=== PATIENT | female | born 1985 | race Hispanic/Latino ===

== ENCOUNTER 2017-12-13 18:31 | Emergency (ER) | payer MEDICAID ==
[2017-12-13 18:52] LABS: APPEARANCE,URINE Clear (CLEAR); BILIRUBIN,URINE Negative (NEGATIVE); COLOR,URINE Dark Yellow (YELLOW); GLUCOSE, URINE (UA) Negative (NEGATIVE); KETONES,URINE Trace mg/dL (NEGATIVE); LEUKOCYTE ESTERASE ,URINE Trace (NEGATIVE); NITRATE,URINE Positive (NEGATIVE); OCCULT BLOOD,URINE Moderate (NEGATIVE); PH,URINE 5.5 (5.0-8.0); PROTEIN,URINE Negative (NEGATIVE)
[2017-12-13 18:57] LABS: HCG,QUAL RESULT NEGATIVE (NEGATIVE)
[2017-12-13 19:03] LABS: BASOPHILS % (AUTO) 0.4 % (0.0-5.0); EOSINOPHILS % (AUTO) 1.1 % (0.0-8.0); HEMATOCRIT 40.8 % (36-48); LYMPHOCYTES % (AUTO) 18.7 % (21.0-51.0); MEAN CORPUSCULAR HEMOGLOBIN 31.6 pg (27.0-33.0); MEAN CORPUSCULAR VOLUME 92.7 fL (79-99); MONOCYTES % (AUTO) 6.4 % (3.0-13.0); NEUTROPHILS % (AUTO) 73.4 % (40.0-77.0); PLATELET COUNT (AUTO) 246 K/uL (130-400); RED BLOOD CELL COUNT(AUTO) 4.41 MIL/uL (4.00-5.50); RED CELL DISTRIBUTION WIDTH 12.6 % (11.0-15.5); WHITE BLOOD COUNT (AUTO) 9.2 K/uL (4.8-10.8)
[2017-12-13] MEDS ORDERED: SODIUM CHLORIDE 0.9% 1000ML 1,000 ML IV ONE (19:09)
[2017-12-13 19:18] LABS: BACTERIA,URINE Rare /HPF (None Seen); CALCIUM OXALATE CRYSTALS,UR Few /LPF (None Seen); WBC,URINE 0-1 /HPF (0-1)
[2017-12-13 19:24] LABS: CREATININE 0.7 mg/dL (0.5-1.5)
[2017-12-13 19:28] LABS: ALBUMIN 3.7 g/dL (3.5-5.0); BILIRUBIN,TOTAL 0.8 mg/dL (0.2-1.0); TOTAL PROTEIN, SERUM 8.1 g/dL (6.0-8.3)
[2017-12-13] MEDS ORDERED: KETOROLAC TROMETHAMINE 15MG/ML ONE (19:46)
[2017-12-13] MEDS ORDERED: ONDANSETRON ODT 4 MG TAB ONE (19:47)
[2017-12-13 20:25] LABS: AMPHET/METH SCREEN,URINE NEGATIVE (NEGATIVE); BARBITURATE SCREEN, URINE NEGATIVE (NEGATIVE); BENZODIAZEPINES SCREEN,URINE NEGATIVE (NEGATIVE); CANNABINOID SCREEN,URINE NEGATIVE (NEGATIVE); COCAINE SCREEN,URINE POSITIVE (NEGATIVE); OPIATE SCREEN,URINE POSITIVE (NEGATIVE); PHENCYCLIDINE SCREEN,URINE NEGATIVE (NEGATIVE)
== END 2017-12-13 21:20 | disposition home or self-care (01) ==
LOC: EDH 18:31
DX: N23 Unspecified renal colic (principal); N13.30 Unspecified hydronephrosis; F14.10 Cocaine abuse, uncomplicated; E78.5 Hyperlipidemia, unspecified; Z88.0 Allergy status to penicillin; Z98.51 Tubal ligation status
CPT/HCPCS: 36415; 76770; 80053; 80305; 81001; 81025; 83690; 85025; 96361 ×2; 96374; 99285; J1885; J7030

== ENCOUNTER 2018-07-22 12:04 | Observation (INO) | payer MEDICAID ==
[~2018-07-22] VITALS: Ht 160 cm; Wt 74.4 kg
[2018-07-22 12:48] LABS: BASOPHILS % (AUTO) 0.4 % (0.0-5.0); EOSINOPHILS % (AUTO) 0.4 % (0.0-8.0); HEMATOCRIT 36.7 % (36-48); LYMPHOCYTES % (AUTO) 14.2 % (21.0-51.0); MEAN CORPUSCULAR HGB CONC 33.5 g/dL (32.0-36.0); MEAN CORPUSCULAR VOLUME 92.5 fL (79-99); MONOCYTES % (AUTO) 6.5 % (3.0-13.0); NEUTROPHILS % (AUTO) 78.5 % (40.0-77.0); PLATELET COUNT (AUTO) 196 K/uL (130-400); RED BLOOD CELL COUNT(AUTO) 3.97 MIL/uL (4.00-5.50); RED CELL DISTRIBUTION WIDTH 12.6 % (11.0-15.5)
[2018-07-22 12:53] LABS: APPEARANCE,URINE Clear (CLEAR); BILIRUBIN,URINE Negative (NEGATIVE); COLOR,URINE Yellow (YELLOW); GLUCOSE, URINE (UA) Negative (NEGATIVE); HCG,QUAL RESULT NEGATIVE (NEGATIVE); KETONES,URINE Negative (NEGATIVE); LEUKOCYTE ESTERASE ,URINE Trace (NEGATIVE); NITRATE,URINE Negative (NEGATIVE); OCCULT BLOOD,URINE Moderate (NEGATIVE); PH,URINE 6.5 (5.0-8.0); PROTEIN,URINE Negative (NEGATIVE); UROBILINOGEN,URINE 0.2 mg/dL (0.2-1.0)
[2018-07-22 13:00] LABS: CARBON DIOXIDE 25 mmol/L (21-32); CHLORIDE 107 mmol/L (101-111); CREATININE 0.6 mg/dL (0.5-1.5); GLOMERULAR FILTR. RATE CALC 122 mL/min (>60); GLUCOSE,RANDOM 95 mg/dL (70-105); POTASSIUM 4.1 mmol/L (3.5-5.1); SODIUM SERUM 139 mmol/L (136-145); UREA NITROGEN, BLOOD 11 mg/dL (7-18)
[2018-07-22 13:01] LABS: BACTERIA,URINE Rare /HPF (None Seen); SQUAMOUS EPITHELIAL CELL,UR Rare /HPF (0-2); WBC,URINE 0-1 /HPF (0-1)
[2018-07-22 13:03] LABS: AMPHET/METH SCREEN,URINE NEGATIVE (NEGATIVE); BARBITURATE SCREEN, URINE NEGATIVE (NEGATIVE); BENZODIAZEPINES SCREEN,URINE NEGATIVE (NEGATIVE); CANNABINOID SCREEN,URINE NEGATIVE (NEGATIVE); COCAINE SCREEN,URINE NEGATIVE (NEGATIVE); OPIATE SCREEN,URINE POSITIVE (NEGATIVE); PHENCYCLIDINE SCREEN,URINE NEGATIVE (NEGATIVE)
[2018-07-22 13:11] LABS: ALANINE AMINOTRANSFERASE 53 U/L (12-78); ALBUMIN 3.4 g/dL (3.5-5.0); ASPARTATE AMINOTRANSFERASE 24 U/L (10-37); BILIRUBIN,TOTAL 0.6 mg/dL (0.2-1.0); TOTAL PROTEIN, SERUM 7.1 g/dL (6.0-8.3)
[2018-07-22 13:12] LABS: ACETAMINOPHEN 4 mcg/mL (10-30); ALCOHOL, BLOOD < 3 mg/dL (0-10); SALICYLATE < 2.8 mg/dL (2.8-20.0)
[2018-07-22] MEDS ORDERED: LACTULOSE 20 GM/30 ML UDCUP PO PRN (14:00)
[2018-07-22] MEDS ORDERED: ZOLPIDEM TARTRATE 5 MG TAB PO PRN (14:00)
[2018-07-22] MEDS ORDERED: ACETAMINOPHEN 325 MG TAB PO PRN (14:00)
[2018-07-22] MEDS ORDERED: MAG HYDROX/AL HYDROX/SIMETH ES 30 ML SUSP UDCUP PO PRN (14:00)
[2018-07-22] MEDS ORDERED: ONDANSETRON HCL 4 MG/2 ML VIAL IV PRN (14:00)
[2018-07-22] MEDS ORDERED: CHARCOAL/SORBITOL 50 GM/240 ML SUSP PO SCH (19:15)
[2018-07-22] MEDS: ACETYLCYSTEINE 10% 100MG/ML 4ML VIAL PO SCH ×2 (19:15→23:15)
[2018-07-22] MEDS: SODIUM CHLORIDE 0.9% 1000ML 1,000 ML IV SCH (21:27)
[2018-07-22 21:45] VITALS: BP 120/92
[2018-07-23 00:04] VITALS: BP 103/74
[2018-07-23] MEDS: ACETYLCYSTEINE 10% 100MG/ML 4ML VIAL PO SCH ×2 (03:15→07:15)
[2018-07-23 04:15] VITALS: BP 101/63
[2018-07-23] MEDS: SODIUM CHLORIDE 0.9% 1000ML 1,000 ML IV SCH (05:33)
[2018-07-23 08:00] VITALS: BP 108/64
[2018-07-23] MEDS ORDERED: PANTOPRAZOLE SODIUM 40 MG TABLET.DR PO SCH (09:00)
[2018-07-23] MEDS ORDERED: ENOXAPARIN SODIUM 40 MG/0.4 ML SYRINGE SQ SCH (09:00)
[2018-07-23 12:00] VITALS: BP 114/69
== END 2018-07-23 17:20 | disposition home or self-care (01) ==
LOC: EDH 12:04 → EEVIPCON 12:04 → EDHIP 12:05 → 3AH 21:05
PROVIDERS: ADMIT Internal Medicine; ATTEND Internal Medicine
DX: T39.1X2A Poisoning by 4-Aminophenol derivatives, intentional self-harm, initial encounter (principal); E83.52 Hypercalcemia; R27.9 Unspecified lack of coordination; Y92.89 Other specified places as the place of occurrence of the external cause
CPT/HCPCS: 36415 ×2; 80053; 80305; 81001; 81025; 84443; 85025; 96360; 96361 ×2; 96372; 99285; G0378 ×29; G0480 ×4; G0481; J1650; J7030 ×2; J7608; Q2038

== ENCOUNTER 2018-08-01 21:19 | Emergency (ER) | payer MEDICAID ==
[2018-08-01 21:47] LABS: APPEARANCE,URINE Clear (CLEAR); BILIRUBIN,URINE Small (NEGATIVE); COLOR,URINE Dark Yellow (YELLOW); GLUCOSE, URINE (UA) Negative (NEGATIVE); KETONES,URINE Negative (NEGATIVE); LEUKOCYTE ESTERASE ,URINE Small (NEGATIVE); NITRATE,URINE Positive (NEGATIVE); OCCULT BLOOD,URINE Large (NEGATIVE); PROTEIN,URINE Trace (NEGATIVE)
[2018-08-01 21:48] LABS: HCG,QUAL RESULT NEGATIVE (NEGATIVE)
[2018-08-01 21:58] LABS: RBC,URINE >100 /HPF (0-1)
[2018-08-01 21:59] LABS: BACTERIA,URINE Rare /HPF (None Seen); CALCIUM OXALATE CRYSTALS,UR Few /LPF (None Seen); SQUAMOUS EPITHELIAL CELL,UR Rare /HPF (0-2)
[2018-08-01] MEDS ORDERED: NITROFURANTOIN MONOHYD/M-CRYST 100 MG CAPSULE PO ONE (22:28)
[2018-08-01] MEDS ORDERED: PHENAZOPYRIDINE HCL 200 MG TABLET ONE (22:28)
== END 2018-08-01 22:59 | disposition home or self-care (01) ==
LOC: EDH 21:19
DX: N30.00 Acute cystitis without hematuria (principal); E78.5 Hyperlipidemia, unspecified; Z88.0 Allergy status to penicillin; Z87.442 Personal history of urinary calculi; Z79.899 Other long term (current) drug therapy; Z98.51 Tubal ligation status
CPT/HCPCS: 81001; 81025

== ENCOUNTER 2019-01-25 12:07 | Emergency (ER) | payer MEDICAID, OTHER ==
[2019-01-25] MEDS ORDERED: LIDOCAINE HCL 2% VISCOUS 15 ML UDCUP ONE (12:16)
== END 2019-01-25 12:24 | disposition home or self-care (01) ==
LOC: EDH 12:07
DX: S02.5XXA Fracture of tooth (traumatic), initial encounter for closed fracture (principal); E78.5 Hyperlipidemia, unspecified; F32.9 Major depressive disorder, single episode, unspecified; Z98.51 Tubal ligation status; Z88.0 Allergy status to penicillin; X58.XXXA Exposure to other specified factors, initial encounter; Y93.89 Activity, other specified; Y92.89 Other specified places as the place of occurrence of the external cause; Y99.8 Other external cause status

== ENCOUNTER 2019-05-31 13:36 | Emergency (ER) | payer OTHER ==
[2019-05-31 14:12] LABS: BASOPHILS % (AUTO) 0.2 % (0.0-5.0); EOSINOPHILS % (AUTO) 0.5 % (0.0-8.0); HEMATOCRIT 41.9 % (36-48); LYMPHOCYTES % (AUTO) 16.8 % (21.0-51.0); MEAN CORPUSCULAR HEMOGLOBIN 32.3 pg (27.0-33.0); MEAN CORPUSCULAR HGB CONC 34.5 g/dL (32.0-36.0); MEAN CORPUSCULAR VOLUME 93.7 fL (79-99); MONOCYTES % (AUTO) 5.8 % (3.0-13.0); NEUTROPHILS % (AUTO) 76.7 % (40.0-77.0); PLATELET COUNT (AUTO) 243 K/uL (130-400); RED BLOOD CELL COUNT(AUTO) 4.47 MIL/uL (4.00-5.50); RED CELL DISTRIBUTION WIDTH 12.5 % (11.0-15.5); WHITE BLOOD COUNT (AUTO) 7.1 K/uL (4.8-10.8)
[2019-05-31 14:19] LABS: CARBON DIOXIDE 26 mmol/L (21-32); CHLORIDE 107 mmol/L (101-111); CREATININE 0.7 mg/dL (0.5-1.5); GLOMERULAR FILTR. RATE CALC 101 mL/min (>60); GLUCOSE,RANDOM 107 mg/dL (70-105); POTASSIUM 3.9 mmol/L (3.5-5.1); SODIUM SERUM 140 mmol/L (136-145); UREA NITROGEN, BLOOD 11 mg/dL (7-18)
[2019-05-31 14:24] LABS: ALANINE AMINOTRANSFERASE 64 U/L (12-78); ALBUMIN 3.3 g/dL (3.5-5.0); ALCOHOL, BLOOD < 3 mg/dL (0-10); ASPARTATE AMINOTRANSFERASE 29 U/L (10-37); TOTAL PROTEIN, SERUM 6.7 g/dL (6.0-8.3)
[2019-05-31 14:32] LABS: APPEARANCE,URINE Clear (CLEAR); BILIRUBIN,URINE Negative (NEGATIVE); COLOR,URINE Yellow (YELLOW); GLUCOSE, URINE (UA) Negative (NEGATIVE); KETONES,URINE Trace mg/dL (NEGATIVE); LEUKOCYTE ESTERASE ,URINE Negative (NEGATIVE); NITRATE,URINE Negative (NEGATIVE); OCCULT BLOOD,URINE Negative (NEGATIVE); PROTEIN,URINE Negative (NEGATIVE); UROBILINOGEN,URINE 0.2 mg/dL (0.2-1.0)
[2019-05-31 14:36] LABS: AMPHET/METH SCREEN,URINE NEGATIVE (NEGATIVE); BARBITURATE SCREEN, URINE NEGATIVE (NEGATIVE); BENZODIAZEPINES SCREEN,URINE NEGATIVE (NEGATIVE); CANNABINOID SCREEN,URINE NEGATIVE (NEGATIVE); COCAINE SCREEN,URINE NEGATIVE (NEGATIVE); HCG,QUAL RESULT NEGATIVE (NEGATIVE); OPIATE SCREEN,URINE NEGATIVE (NEGATIVE); PHENCYCLIDINE SCREEN,URINE NEGATIVE (NEGATIVE)
[2019-05-31 14:38] LABS: ACETAMINOPHEN < 1 mcg/mL (10-30); SALICYLATE < 2.8 mg/dL (2.8-20.0)
== END 2019-05-31 15:12 ==
LOC: EDH 13:36 → EEVIPCON 13:36 → EDH 15:12
DX: R45.851 Suicidal ideations (principal); F32.9 Major depressive disorder, single episode, unspecified; E78.5 Hyperlipidemia, unspecified; Z87.442 Personal history of urinary calculi; Z88.0 Allergy status to penicillin
CPT/HCPCS: 36415; 80053; 80305; 81003; 81025; 85025; 99284; G0480 ×2; G0481

== ENCOUNTER 2019-05-31 17:29 | Emergency (ER) | payer OTHER ==
[2019-05-31 18:31] LABS: AMPHET/METH SCREEN,URINE NEGATIVE (NEGATIVE); BARBITURATE SCREEN, URINE NEGATIVE (NEGATIVE); BENZODIAZEPINES SCREEN,URINE NEGATIVE (NEGATIVE); CANNABINOID SCREEN,URINE NEGATIVE (NEGATIVE); COCAINE SCREEN,URINE NEGATIVE (NEGATIVE); OPIATE SCREEN,URINE NEGATIVE (NEGATIVE); PHENCYCLIDINE SCREEN,URINE NEGATIVE (NEGATIVE)
== END 2019-05-31 19:53 ==
LOC: EDH 17:29
DX: R45.851 Suicidal ideations (principal); Z76.5 Malingerer [conscious simulation]
CPT/HCPCS: 80305

== ENCOUNTER 2020-03-06 01:08 | Inpatient (IN) | payer OTHER ==
[~2020-03-06] VITALS: Ht 160 cm; Wt 65.2 kg
[2020-03-06 01:55] LABS: APPEARANCE,URINE Cloudy (CLEAR); BILIRUBIN,URINE Negative (NEGATIVE); COLOR,URINE Yellow (YELLOW); GLUCOSE, URINE (UA) Negative (NEGATIVE); KETONES,URINE 40 mg/dL (NEGATIVE); LEUKOCYTE ESTERASE ,URINE Moderate (NEGATIVE); NITRATE,URINE Negative (NEGATIVE); OCCULT BLOOD,URINE Large (NEGATIVE); PH,URINE 5.5 (5.0-8.0); PROTEIN,URINE Trace mg/dL (NEGATIVE)
[2020-03-06 01:59] LABS: HCG,QUAL RESULT NEGATIVE (NEGATIVE)
[2020-03-06 02:06] LABS: BACTERIA,URINE Rare /HPF (None Seen); CALCIUM OXALATE CRYSTALS,UR Few /LPF (None Seen); SQUAMOUS EPITHELIAL CELL,UR Moderate /HPF (0-2)
[2020-03-06] MEDS ORDERED: ACETAMINOPHEN 325 MG TAB ONE (02:10)
[2020-03-06 02:28] LABS: BASOPHILS % (AUTO) 0.2 % (0.0-5.0); EOSINOPHILS % (AUTO) 0.2 % (0.0-8.0); HEMATOCRIT 43.9 % (36-48); LYMPHOCYTES % (AUTO) 12.9 % (21.0-51.0); MEAN CORPUSCULAR HEMOGLOBIN 31.5 pg (27.0-33.0); MEAN CORPUSCULAR HGB CONC 33.3 g/dL (32.0-36.0); MEAN CORPUSCULAR VOLUME 94.8 fL (79-99); MONOCYTES % (AUTO) 5.7 % (3.0-13.0); NEUTROPHILS % (AUTO) 80.8 % (40.0-77.0); PLATELET COUNT (AUTO) 268 K/uL (130-400); RED BLOOD CELL COUNT(AUTO) 4.63 MIL/uL (4.00-5.50); RED CELL DISTRIBUTION WIDTH 12.3 % (11.0-15.5); WHITE BLOOD COUNT (AUTO) 9.3 K/uL (4.8-10.8)
[2020-03-06 02:37] LABS: CREATININE 0.6 mg/dL (0.5-1.5); POTASSIUM 4.2 mmol/L (3.5-5.1)
[2020-03-06] MEDS ORDERED: ONDANSETRON HCL 4 MG/2 ML VIAL IV PRN (04:45)
[2020-03-06] MEDS ORDERED: LEVOFLOXACIN 500 MG/D5W 100 ML 100 ML ONE (05:39)
[2020-03-06 06:10] VITALS: BP 141/83
--- NOTE | 2020-03-06 06:30 | NUR ---
ADMISSION 0610 PATIENT ARRIVED VIA STRETCHER. AMBULATED TO BATHROOM WITHOUT DIFFICULTY. AAOX3 BREATHING REGULAR AND UNLABORED ON ROOM AIR. ASSESSMENT COMPLETED. CHEST X-RAY DONE. PATIENT [employer]. VOICES SCRATCHY THROAT,BODY ACHES, AND INTERMITTENT DRY COUGH. AFEBRILE. STATED INITIAL COVID-19 TEST 02/08/20 (+) LAST COVID -19 TEST 02/16/20 (+). BURNING SENSATION ON URINATION. DISCUSSED PLAN OF CARE WITH PATIENT AND REASON FOR ADMISSION. NS INFUSING TO R PIV AT 50 ML / HR. POSITIONED TO COMFORT. CALL LIGHT IN REACH. PIPE STRIPPER AT BEDSIDE PATIENT VOICES THOUGHTS OF SUICIDAL IDEATION 2 WEEKS AGO. NO ATTEMPTS, NO PLAN. NON-COMPLIANT WITH ANTI-DEPRESSANTS
[2020-03-06] MEDS: LEVOFLOXACIN 500 MG/D5W 100 ML 100 ML IV SCH (06:44)
[2020-03-06] MEDS: SODIUM CHLORIDE 0.9% 1000ML 1,000 ML IV SCH ×3 (06:44→18:13)
[2020-03-06 07:04] LABS: ALANINE AMINOTRANSFERASE 21 U/L (12-78); ALBUMIN 3.8 g/dL (3.5-5.0); ASPARTATE AMINOTRANSFERASE 12 U/L (10-37); CARBON DIOXIDE 24 mmol/L (21-32); CHLORIDE 106 mmol/L (101-111); CREATININE 0.7 mg/dL (0.5-1.5); GLOMERULAR FILTR. RATE CALC 101 mL/min (>60); GLUCOSE,RANDOM 93 mg/dL (70-105); POTASSIUM 4.1 mmol/L (3.5-5.1); SODIUM SERUM 139 mmol/L (136-145); THYROID STIMULATING HORMONE 1.07 uIU/mL (0.36-3.74); TOTAL PROTEIN, SERUM 7.6 g/dL (6.0-8.3); UREA NITROGEN, BLOOD 10 mg/dL (7-18)
--- NOTE | 2020-03-06 07:30 | NUR ---
MD ROUNDS DR SORIANO AT THE BEDSIDE. PATIENT INTERVIEW/ASSESSMENT. PLAN OF CARE DISCUSSED WITH PATIENT. NEW ORDERS RECEIVED AND ENTERED INTO SYSTEM. NS INCREASED TO 150 ML/HR
[2020-03-06 08:19] VITALS: BP 123/80
[2020-03-06] MEDS: ACETAMINOPHEN 325 MG TAB PO PRN ×3 (08:19→21:04)
[2020-03-06] MEDS: FAMOTIDINE 20MG TAB 20 MG TAB PO SCH ×2 (08:19→19:59)
[2020-03-06] MEDS ORDERED: FUROSEMIDE 10 MG/ML 4ML VIAL IV SCH (09:00)
[2020-03-06] MEDS: ALPRAZOLAM 0.25 MG TABLET PO PRN ×2 (10:56→21:04)
[2020-03-06 11:19] VITALS: BP 153/83
[2020-03-06] MEDS ORDERED: COMPOUND IV REFRIGERATED 1 EACH IVSOLN MISC PRN (12:45)
[2020-03-06] MEDS ORDERED: CALCITONIN 200 UNITS/ML 2 ML VIAL SQ SCH (13:00)
[2020-03-06 16:09] VITALS: BP 130/78
[2020-03-06 20:00] VITALS: BP 124/74
--- NOTE | 2020-03-06 20:36 | NUR ---
MD CALL PAGED RAFAT HURT SUPERINTENDENT MARINE TO NOTIFY HER OF PATIENT TEST RESULT FOR COVID-19 WAS NEGATIVE. AWAITING FOR CALL BACK.
--- NOTE | 2020-03-06 21:17 | NUR ---
MD REENA HURT L[employer]ARGE MILL OPERATOR CALLED BACK ORDERS TO TRANSFER PATIENT TO TELE FOURTH FLOOR SECONDARY TO NEGATIVE COVID-19 RESULT.
--- NOTE | 2020-03-06 22:40 | NUR ---
TRANSFER REPORT GIVEN TO KVNG DE LUNA PATIENT BEING TRANSFERRED TO MEDICAL FLOOR POST NEGATIVE COVID-19 RESULT.
[2020-03-06 23:25] VITALS: BP 123/75
--- NOTE | 2020-03-06 23:25 | NUR ---
TRANSFER PATIENT TRANSFERRED FROM 220 INTO ROOM 324, AWAKE, ALERT AND VERBALLY RESPONSIVE. NO C/O PAIN OR DISCOMFORT AT THIS TIME. ASSISTED FROM WHEELCHAIR INTO BED, NOTICED SOME GENERAL BODY WEAKNESS. 24 HOUR URINE COLLECTION ONGOING, PATIENT AWARE. ORIENTED TO ROOM, CALL GREENE WITHIN REACH, BED IN LOWEST POSITION. WILL CONTINUE TO MONITOR. Addendum: 03/07/20 at 0017 by RENETTA COREAS RN Amended: Links added.
[2020-03-07] MEDS ORDERED: CALCITONIN 200 UNITS/ML 2 ML VIAL SQ SCH (00:15)
[2020-03-07] MEDS: SODIUM CHLORIDE 0.9% 1000ML 1,000 ML IV SCH ×5 (00:20→20:07)
[2020-03-07 04:00] VITALS: BP 114/70
[2020-03-07 04:35] LABS: BASOPHILS % (AUTO) 0.2 % (0.0-5.0); EOSINOPHILS % (AUTO) 0.1 % (0.0-8.0); HEMATOCRIT 38.8 % (36-48); LYMPHOCYTES % (AUTO) 12.8 % (21.0-51.0); MEAN CORPUSCULAR HEMOGLOBIN 30.8 pg (27.0-33.0); MEAN CORPUSCULAR VOLUME 93.5 fL (79-99); MONOCYTES % (AUTO) 7.1 % (3.0-13.0); NEUTROPHILS % (AUTO) 79.5 % (40.0-77.0); PLATELET COUNT (AUTO) 263 K/uL (130-400); RED BLOOD CELL COUNT(AUTO) 4.15 MIL/uL (4.00-5.50); RED CELL DISTRIBUTION WIDTH 11.9 % (11.0-15.5); WHITE BLOOD COUNT (AUTO) 9.2 K/uL (4.8-10.8)
[2020-03-07 04:58] LABS: CREATININE 0.6 mg/dL (0.5-1.5); PHOSPHORUS 1.4 mg/dL (2.5-4.9); POTASSIUM 3.3 mmol/L (3.5-5.1)
[2020-03-07] MEDS: LEVOFLOXACIN 500 MG/D5W 100 ML 100 ML IV SCH (05:45)
[2020-03-07] MEDS: ALPRAZOLAM 0.25 MG TABLET PO PRN ×2 (07:10→20:01)
[2020-03-07] MEDS ORDERED: POTASSIUM PHOS 15 mMOL+NS250ML 250 ML IV PRN (07:45)
[2020-03-07 08:17] VITALS: BP 104/75
[2020-03-07] MEDS: FAMOTIDINE 20MG TAB 20 MG TAB PO SCH ×2 (09:59→20:01)
[2020-03-07 11:15] VITALS: BP 101/56
[2020-03-07] MEDS: ACETAMINOPHEN 325 MG TAB PO PRN (13:41)
--- NOTE | 2020-03-07 15:22 | NUR ---
DC PLAN VISITED WITH PATIENT. PATIENT LIVES WITH KIDS . PATIENT INDEPENDENT ABLE TO PERFORM ADL'S. PATIENT HAS NO SERVICES OR DME'S. FEELS SAFE TO RETURN HOME. Addendum: 03/07/20 at 1524 by JORGE HODGE RN CM Amended: Links added.
[2020-03-07 16:51] VITALS: BP 109/66
[2020-03-07 19:30] VITALS: BP 115/75
[2020-03-07 23:06] VITALS: BP 109/65
[2020-03-08] VITALS (7 sets, daily range): BP systolic 97–141; BP diastolic 60–75
[2020-03-08] MEDS: SODIUM CHLORIDE 0.9% 1000ML 1,000 ML IV SCH ×3 (03:16→18:14)
[2020-03-08] MEDS: ACETAMINOPHEN 325 MG TAB PO PRN (03:16)
[2020-03-08 04:32] LABS: CREATININE 0.6 mg/dL (0.5-1.5); MAGNESIUM 2.1 mg/dL (1.80-2.40); PHOSPHORUS 2.2 mg/dL (2.5-4.9); POTASSIUM 3.5 mmol/L (3.5-5.1)
[2020-03-08] MEDS: LEVOFLOXACIN 500 MG/D5W 100 ML 100 ML IV SCH (04:40)
[2020-03-08] MEDS: FUROSEMIDE 10 MG/ML 4ML VIAL IV SCH ×2 (06:39→18:14)
[2020-03-08] MEDS: ALPRAZOLAM 0.25 MG TABLET PO PRN ×2 (08:16→16:06)
--- NOTE | 2020-03-08 08:30 | NUR ---
DR. CLARY MUSE HERE TO SEE PATIENT. TOLD PATIENT HE WOULD SPEAK TO DR. CYR TO RECOMMEND ENT CONSULT.
[2020-03-08] MEDS ORDERED: ERGOCALCIFEROL (VITAMIN D2) 50,000 UNIT CAPSULE PO SCH (09:00)
[2020-03-08] MEDS: FAMOTIDINE 20MG TAB 20 MG TAB PO SCH ×2 (09:19→20:21)
--- NOTE | 2020-03-08 11:00 | NUR ---
NOTE DR VERDUZCO'S OFFICE WAS CALLED FOR ENT CONSULT BUT WE WERE NOTIFIED HE IS OUT OF TOWN UNTIL THURSDAY. WE WILL TRY ANOTHER ENT TO SEE IF THEY CAN SEE HER BEFORE WEEKEND. WILL NOTIFY DR CYR.
[2020-03-08] MEDS ORDERED: CINACALCET HCL 30 MG TAB PO SCH (15:00)
[2020-03-09] MEDS ORDERED: ALPRAZOLAM 0.25 MG TABLET PO ONE (00:45)
[2020-03-09] MEDS: SODIUM CHLORIDE 0.9% 1000ML 1,000 ML IV SCH ×2 (01:02→03:19)
--- NOTE | 2020-03-09 03:12 | NUR ---
0042; I page Mehran ZARAGOZA due to patient requesting another xanax, for her anxiety she is not able to rest. 0045: Irma Malloy PALLET RECTIFIER returned the call informed her of above, informed her patient received Xanax 0.5 mg at 1200 and 1600. Orders received for Xanax 0.25 mg one extra dose. Patient made aware, informed her would bring medication when available. Patient verbalized understanding. 0137: Patient still talking on the phone, very upset yelling at some one. Xanax 0.25 mg administered po 0312: Patient still awake has been eating all night, no complains of pain.
[2020-03-09 04:00] VITALS: BP 112/68
[2020-03-09] MEDS: LEVOFLOXACIN 500 MG/D5W 100 ML 100 ML IV SCH (04:47)
[2020-03-09] MEDS: FUROSEMIDE 10 MG/ML 4ML VIAL IV SCH (05:05)
[2020-03-09] MEDS: ALPRAZOLAM 0.25 MG TABLET PO PRN (05:05)
[2020-03-09 05:31] LABS: CREATININE 0.6 mg/dL (0.5-1.5); MAGNESIUM 1.9 mg/dL (1.80-2.40); POTASSIUM 3.2 mmol/L (3.5-5.1)
[2020-03-09 08:00] VITALS: BP 96/67
[2020-03-09] MEDS: CINACALCET HCL 30 MG TAB PO SCH ×2 (09:45→17:47)
[2020-03-09] MEDS: FAMOTIDINE 20MG TAB 20 MG TAB PO SCH (09:45)
[2020-03-09] MEDS ORDERED: POTASSIUM CHLORIDE 20 MEQ ERTAB PO SCH (10:00)
[2020-03-09] MEDS ORDERED: POTASSIUM CHLORIDE 20 MEQ ERTAB PO ONE (11:12)
[2020-03-09 12:00] VITALS: BP 134/65
--- NOTE | 2020-03-09 14:40 | NUR ---
I HAVE SPOKEN TO WIL SHEPHERD AND ASKED HER TO HELP PATIENT WITH INFORMATION OR COUPONS FOR SENSIPAR
[2020-03-09 16:00] VITALS: BP 113/67
--- NOTE | 2020-03-09 18:06 | NUR ---
D/C INSTRUCTIONS GIVEN TO PATIENT IN REGARDS TO HYPERCALCEMIA AND HYPERYPARATHYROIDISM; WARNING SIGNS TO WATCH FOR DISCUSSED AND TO GO TO ED IF THEY DEVELOP; SCRIPT GIVEN; IV ACCESS REMOVED; EXCUSE FOR WORK PRINTED; I WAS NOT ABLE TO MAKE THE APPOINTMENTS FOR PT DUE TO IT BEING LATE WHEN DC ORDER PLACED; PT KNOWS TO CALL THURSDAY AND MAKE THE APPOINTMENTS.
--- NOTE | 2020-03-09 18:10 | NUR ---
GAVE PATIENT COUPON FOR SENSIPAR- $222, PATIENT STATES EMPHATICALLY SHE CAN BUY MEDICATION AND WANTS TO BE DISCHARGED A SKED PATIENT AGAIN IF SHE IS PLANNING TO RETURN TO [facility], OR [facility] FOR WORK AND IF SHE WAS TERMINATED OR SHE WAS ON SICK LEAV? PATIENT VERY EVASIVE. ADVISED HER THAT SHE NEED TO PRESENT HER INSURANCE INFORMATION IF HER INSURANCE IS STILL VALID. AGAIN, PT VERY EVASIVE AND STATED THAT ' MEDICAID WOULD COVER EVERYTHING HERE (THIS [facility]) BUT HER INSURANCE (FROM [facility]) WOULD NOT, 'SO THE MEDICAID WAS BETTER'. ADVISED HER SHE WOULD NOT QUALIFY FOR MEDICAID IF SHE WAS COVERED BY ANOTHER INSURANCE AT THIS TIME. ENCOURAGED TO FOLLOW UP WITH HER HR AT HER EMPLOYER Addendum: 03/09/20 at 1817 by GENARO SPANGLER RN CM Amended: Links added.
== END 2020-03-09 19:15 | disposition home or self-care (01) | DRG 178 ==
LOC: EDH 01:08 → EDHIP 01:09 → 2DH 05:25 → 3DH 23:03 → 3BH 03-08 14:22
PROVIDERS: ADMIT Internal Medicine; ATTEND Internal Medicine
DX: U07.1 COVID-19 (principal); N39.0 Urinary tract infection, site not specified; E83.52 Hypercalcemia; E78.5 Hyperlipidemia, unspecified; F32.9 Major depressive disorder, single episode, unspecified; E87.6 Hypokalemia; D64.9 Anemia, unspecified; E83.39 Other disorders of phosphorus metabolism; E87.70 Fluid overload, unspecified; E86.0 Dehydration; Z87.442 Personal history of urinary calculi; Z87.891 Personal history of nicotine dependence; Z88.0 Allergy status to penicillin; Z83.3 Family history of diabetes mellitus; Z82.3 Family history of stroke; Z82.49 Family history of ischemic heart disease and other diseases of the circulatory system
CPT/HCPCS: 36415; 71045; 76770; 80048; 80053; 81001; 81025; 82306; 82330; 82340; 82728; 83735; 83970; 84100; 84145; 84443; 85025; 86140; 87088; 87486; 87581; 87633; 87798; 93005; G0378; J0630; J1940; J1956; J7030

== ENCOUNTER 2020-05-18 00:17 | Emergency (ER) | payer BC, OTHER ==
[2020-05-18] MEDS ORDERED: MORPHINE SULFATE 2 MG/ML 1ML SYG ONE (01:36)
[2020-05-18] MEDS ORDERED: IBUPROFEN 600 MG TABLET ONE (01:36)
== END 2020-05-18 02:14 | disposition home or self-care (01) ==
LOC: EDH 00:17
DX: S82.002A Unspecified fracture of left patella, initial encounter for closed fracture (principal); F32.9 Major depressive disorder, single episode, unspecified; E78.5 Hyperlipidemia, unspecified; Z88.0 Allergy status to penicillin; W01.10XA Fall on same level from slipping, tripping and stumbling with subsequent striking against unspecified object, initial encounter; Y93.89 Activity, other specified; Y92.89 Other specified places as the place of occurrence of the external cause; Y99.8 Other external cause status
CPT/HCPCS: 29505; 73562; 96372

== ENCOUNTER 2020-10-20 12:42 | Emergency (ER) | payer SELFPAY ==
[2020-10-20 13:18] LABS: BILIRUBIN,URINE Negative (NEGATIVE); COLOR,URINE Yellow (YELLOW); GLUCOSE, URINE (UA) Negative (NEGATIVE); KETONES,URINE Negative (NEGATIVE); LEUKOCYTE ESTERASE ,URINE Small (NEGATIVE); NITRATE,URINE Negative (NEGATIVE); OCCULT BLOOD,URINE Moderate (NEGATIVE); PH,URINE 6.5 (5.0-8.0); PROTEIN,URINE Negative (NEGATIVE)
[2020-10-20] MEDS ORDERED: SODIUM CHLORIDE 0.9% 1000ML 1,000 ML IV ONE (13:18)
[2020-10-20] MEDS ORDERED: TAMSULOSIN HCL 0.4 MG CAP.ER.24H ONE (13:18)
[2020-10-20 13:19] LABS: BASOPHILS % (AUTO) 0.2 % (0.0-5.0); EOSINOPHILS % (AUTO) 1.4 % (0.0-8.0); HEMATOCRIT 40.2 % (36-48); LYMPHOCYTES % (AUTO) 19.6 % (21.0-51.0); MEAN CORPUSCULAR HEMOGLOBIN 29.9 pg (27.0-33.0); MEAN CORPUSCULAR HGB CONC 32.1 g/dL (32.0-36.0); MEAN CORPUSCULAR VOLUME 93.3 fL (79-99); MONOCYTES % (AUTO) 7.9 % (3.0-13.0); NEUTROPHILS % (AUTO) 70.7 % (40.0-77.0); PLATELET COUNT (AUTO) 225 K/uL (130-400); RED BLOOD CELL COUNT(AUTO) 4.31 MIL/uL (4.00-5.50); WHITE BLOOD COUNT (AUTO) 4.8 K/uL (4.8-10.8)
[2020-10-20 13:21] LABS: HCG,QUAL RESULT NEGATIVE (NEGATIVE)
[2020-10-20 13:23] LABS: APPEARANCE,URINE CLEAR (CLEAR)
[2020-10-20] MEDS ORDERED: KETOROLAC TROMETHAMINE 30MG/ML ONE (13:27)
[2020-10-20 13:28] LABS: CREATININE 0.5 mg/dL (0.5-1.5); POTASSIUM 4.2 mmol/L (3.5-5.1)
[2020-10-20 13:32] LABS: ALBUMIN 3.6 g/dL (3.5-5.0); BILIRUBIN,TOTAL 0.4 mg/dL (0.2-1.0); TOTAL PROTEIN, SERUM 7.4 g/dL (6.0-8.3)
[2020-10-20 13:41] LABS: RBC,URINE 26-50 /HPF (0-1); WBC,URINE 0-1 /HPF (0-1)
[2020-10-20 13:42] LABS: BACTERIA,URINE Few /HPF (None Seen)
[2020-10-20 13:43] LABS: SQUAMOUS EPITHELIAL CELL,UR 0-2 /HPF (0-2)
== END 2020-10-20 15:09 | disposition home or self-care (01) ==
LOC: EDH 12:42
DX: K59.00 Constipation, unspecified (principal); R31.0 Gross hematuria; E78.5 Hyperlipidemia, unspecified; F32.9 Major depressive disorder, single episode, unspecified; Z88.0 Allergy status to penicillin
CPT/HCPCS: 36415; 74176; 80053; 81001; 81025; 83605; 83690; 85025; 87040 ×2; 96361; 96374; 99284; J1885; J7030

== ENCOUNTER → 2022-01-01 | Outpatient (CLI) | payer OTHER ==
[~2022-01-01] MED LIST: IOHEXOL-350 50ML VIAL IV ONE
== END | disposition home or self-care (01) ==
LOC: RAH 09:50
PROVIDERS: ATTEND Family Medicine
DX: E21.3 Hyperparathyroidism, unspecified (principal)
CPT/HCPCS: 70492; Q9967

== ENCOUNTER 2022-07-15 16:14 | Emergency (ER) | payer OTHER ==
[~2022-07-15] VITALS: Ht 157.5 cm; Wt 65.8 kg
[2022-07-15 17:02] LABS: APPEARANCE,URINE CLEAR (CLEAR); BILIRUBIN,URINE NEGATIVE (NEGATIVE); COLOR,URINE YELLOW (YELLOW); GLUCOSE, URINE (UA) NEGATIVE (NEGATIVE); KETONES,URINE NEGATIVE (NEGATIVE); LEUKOCYTE ESTERASE ,URINE NEGATIVE Leu/uL (NEGATIVE); NITRATE,URINE NEGATIVE (NEGATIVE); OCCULT BLOOD,URINE NEGATIVE (NEGATIVE); PH,URINE 6.5 (5.0-8.0); PROTEIN,URINE 10 mg/dL (NEGATIVE); UROBILINOGEN,URINE 0.2 mg/dL (0.2-1.0)
[2022-07-15 17:05] LABS: HCG,QUALITATIVE URINE NEGATIVE (NEGATIVE)
[2022-07-15 17:07] LABS: BACTERIA,URINE RARE /HPF (None Seen); CALCIUM OXALATE CRYSTALS,UR RARE /LPF (None Seen); MUCUS,URINE FEW LPF (None Seen); SQUAMOUS EPITHELIAL CELL,UR RARE /HPF (0-2)
[2022-07-15 17:12] LABS: BASOPHILS % (AUTO) 0.2 % (0.0-5.0); EOSINOPHILS % (AUTO) 0.7 % (0.0-8.0); HEMATOCRIT 38.7 % (36-48); LYMPHOCYTES % (AUTO) 25.1 % (21.0-51.0); MEAN CORPUSCULAR HEMOGLOBIN 30.1 pg (27.0-33.0); MEAN CORPUSCULAR HGB CONC 33.1 g/dL (32.0-36.0); MEAN CORPUSCULAR VOLUME 91.1 fL (79-99); MONOCYTES % (AUTO) 9.5 % (3.0-13.0); NEUTROPHILS % (AUTO) 64.2 % (40.0-77.0); PLATELET COUNT (AUTO) 249 K/uL (130-400); RED BLOOD CELL COUNT(AUTO) 4.25 MIL/uL (4.00-5.50); RED CELL DISTRIBUTION WIDTH 12.2 % (11.0-15.5); WHITE BLOOD COUNT (AUTO) 6.1 K/uL (4.8-10.8)
[2022-07-15 17:25] LABS: CREATININE 0.6 mg/dL (0.5-1.5); POTASSIUM 3.9 mmol/L (3.5-5.1)
[2022-07-15 17:28] LABS: ALBUMIN 3.5 g/dL (3.5-5.0); TOTAL PROTEIN, SERUM 7.5 g/dL (6.0-8.3)
[2022-07-15] MEDS ORDERED: 0.9%NACL 1000ML 1,000 ML IV ONE (18:30)
[2022-07-15] MEDS ORDERED: FAMOTIDINE 20MG VIAL IV ONE (18:30)
[2022-07-15] MEDS ORDERED: ONDANSETRON 4MG INJ IVP ONE (18:30)
[2022-07-15] MEDS ORDERED: KETOROLAC 15MG/ML VIAL (15MG/ML) IV ONE (18:30)
[2022-07-15] MEDS ORDERED: IOHEXOL 350 MG/ML 100ML INFUS..BTL IV ONE (19:05)
[2022-07-15] MEDS ORDERED: IBUP-2070 PO (19:54)
[2022-07-15] MEDS ORDERED: ONDA4TAB10 PO (19:54)
[2022-07-15 19:58] VITALS: BP 127/69
== END 2022-07-15 20:09 | disposition home or self-care (01) ==
LOC: EDH 16:14
DX: J02.9 Acute pharyngitis, unspecified (principal); B34.9 Viral infection, unspecified; N83.201 Unspecified ovarian cyst, right side; Z20.822 Contact with and (suspected) exposure to COVID-19; E05.90 Thyrotoxicosis, unspecified without thyrotoxic crisis or storm; Z88.0 Allergy status to penicillin
CPT/HCPCS: 99285; 74177; 96374; 96375; 87635; 80053; 85025; 87880; 87804 ×2; 81001; 81025; 36415; C9803; J3490; J7030; J2405; J1885; Q9967